=== PATIENT | female | born 1965 | race Two or more races ===

== ENCOUNTER 2022-11-15 15:03 | Emergency (ER) | payer MEDICAID, OTHER ==
[~2022-11-15] VITALS: Ht 162.6 cm; Wt 81.0 kg
[2022-11-15 15:06] VITALS: BP 124/82
[2022-11-15] MEDS ORDERED: HYDROcodone/acetaminophen 5mg/325mg tablet PO ONE (16:45)
[2022-11-15] MEDS ORDERED: ondansetron 4mg rapidly disintigrating tab PO ONE (16:45)
[2022-11-15] MEDS ORDERED: ketorolac tromethamine 15mg/ml inj. IM ONE (16:45)
== END 2022-11-15 18:12 | disposition home or self-care (01) ==
LOC: ER 15:05
DX: S99.921A Unspecified injury of right foot, initial encounter (principal); Z91.040 Latex allergy status; Z88.0 Allergy status to penicillin; Z88.2 Allergy status to sulfonamides; Z90.49 Acquired absence of other specified parts of digestive tract; X58.XXXA Exposure to other specified factors, initial encounter; Y93.89 Activity, other specified; Y92.89 Other specified places as the place of occurrence of the external cause; Y99.8 Other external cause status
CPT/HCPCS: 29505; 73630; 96372; 99283; J1885; L4360

== ENCOUNTER 2024-06-17 15:13 | Emergency (ER) | payer MEDICAID, OTHER ==
[~2024-06-17] VITALS: Ht 162.6 cm; Wt 80.6 kg
[2024-06-17 15:29] VITALS: BP 119/95; PULSE 80; RESP 16; TEMP 98.1; O2SAT 98
[2024-06-17] MEDS ORDERED: AMOX875T10 PO (18:24)
[2024-06-17] MEDS: amoxicillin 250mg capsule PO STA (18:36)
== END 2024-06-17 19:02 | disposition home or self-care (01) ==
LOC: ER 15:14
DX: K04.7 Periapical abscess without sinus (principal); Z88.0 Allergy status to penicillin; Z88.2 Allergy status to sulfonamides; Z88.1 Allergy status to other antibiotic agents; Z88.5 Allergy status to narcotic agent; Z91.040 Latex allergy status; Z90.49 Acquired absence of other specified parts of digestive tract
CPT/HCPCS: 99283